=== PATIENT | female | born 1980 | race Two or more races ===

== ENCOUNTER 2021-05-25 11:57 | Emergency (ER) | payer OTHER ==
[2021-05-25 12:25] VITALS: BP 165/78; BMI 42.1
[2021-05-25 12:35] VITALS: PULSE 84; TEMP 98.4
[2021-05-25] MEDS ORDERED: ACETAMINOPHEN 1000 MG/100 ML BAG IVPB ONE (14:15)
[2021-05-25] MEDS ORDERED: ONDANSETRON 4 MG/2 ML VIAL IVPUSH ONE (14:15)
[2021-05-25] MEDS ORDERED: SODIUM CHLORIDE 1,000 ML IV STA (14:15)
[2021-05-25] MEDS ORDERED: ACETAMINOPHEN INJECTION 100 ML IVPB ONE (14:38)
[2021-05-25] MEDS ORDERED: ONDANSETRON 4 MG/2 ML VIAL ONE (14:38)
[2021-05-25 15:05] LABS: EPI CELLS >36 /uL (0-25.1); HYALINE CASTS 0 /uL (0-3.1); URINE APPEARANCE CLEAR; URINE BACTERIA 427 /uL (0-1359); URINE BILIRUBIN NEGATIVE (NEGATIVE); URINE COLOR YELLOW; URINE GLUCOSE (UA) TRACE (NEGATIVE); URINE KETONE NEGATIVE (NEGATIVE); URINE LEUK ESTERASE NEGATIVE (NEGATIVE); URINE NITRITE NEGATIVE (NEGATIVE); URINE PROTEIN 3+ (NEGATIVE); URINE RBC 11 /uL (0-23.9); URINE UROBILINOGEN 0.2 mg/dL (0.2-1.0); URINE WBC 28 /uL (0-25.8)
[2021-05-25 15:44] LABS: BASO % 0.7 % (0-2.0); EOS % 1.6 % (0-4.5); HEMATOCRIT 33.1 % (32.4-45.2); HEMOGLOBIN 11.3 GM/dL (10.7-15.3); LYMPH % 20.5 % (8-40); MCH 30.1 pg (25.7-33.7); MCHC 34.2 g/dl (32.0-36.0); MEAN CELL VOLUME 87.9 fl (80-96); MEAN PLT VOLUME 7.6 fl (7.5-11.1); MONO % 5.1 % (3.8-10.2); NEUT % 72.1 % (42.8-82.8); PLATELET COUNT 329 10^3/uL (134-434); RBC 3.77 M/mm3 (3.60-5.2); RDW 14.9 % (11.6-15.6); WHITE BLOOD COUNT 7.8 K/mm3 (4.0-10.0)
[2021-05-25 15:53] LABS: INR 0.92 (0.83-1.09); PROTHROMBIN TIME (PATIENT) 10.6 SEC (9.7-13.0)
[2021-05-25 16:06] LABS: CALCIUM 8.6 mg/dL (8.5-10.1)
[2021-05-25 16:07] LABS: ALBUMIN 2.2 g/dl (3.4-5.0); BLOOD UREA NITROGEN 12.7 mg/dL (7-18)
[2021-05-25 16:10] LABS: CREATININE 0.8 mg/dL (0.55-1.3)
[2021-05-25 16:12] LABS: BILIRUBIN,TOTAL 0.3 mg/dL (0.2-1); TOT PROT 6.5 g/dl (6.4-8.2)
== END 2021-05-25 19:59 | disposition home or self-care (01) ==
LOC: JER 11:57
PROC: 3E033GC Introduction of Other Therapeutic Substance into Peripheral Vein, Percutaneous Approach (ICD-10-PCS; principal; 2021-05-25)
DX: N83.201 Unspecified ovarian cyst, right side (principal)
CPT/HCPCS: 36415; 74177-TC; 80053; 81003; 83690; 84703; 85025; 85610; 87086; 99285-25; Q9967

== ENCOUNTER 2021-10-10 09:52 | Inpatient (IN) | payer OTHER ==
[2021-10-10 10:12] VITALS: BMI 54.5
[2021-10-10] MEDS ORDERED: ONDANSETRON 4 MG/2 ML VIAL IVPUSH ONE (11:14)
[2021-10-10] MEDS ORDERED: SODIUM CHLORIDE 0.9% 500 ML INFUS.BAG IV ONE (11:14)
[2021-10-10] MEDS ORDERED: ONDANSETRON 4 MG/2 ML VIAL ONE (12:06)
[2021-10-10 12:50] LABS: BASO % 0.5 % (0-2.0); EOS % 0.2 % (0-4.5); HEMATOCRIT 32.1 % (32.4-45.2); HEMOGLOBIN 10.6 GM/dL (10.7-15.3); LYMPH % 8.3 % (8-40); MCHC 33.1 g/dl (32.0-36.0); MEAN CELL VOLUME 87.4 fl (80-96); MEAN PLT VOLUME 7.9 fl (7.5-11.1); MONO % 2.4 % (3.8-10.2); NEUT % 88.6 % (42.8-82.8); PLATELET COUNT 349 10^3/uL (134-434); RBC 3.67 M/mm3 (3.60-5.2); WHITE BLOOD COUNT 11.2 K/mm3 (4.0-10.0)
[2021-10-10 13:15] LABS: CALCIUM 7.9 mg/dL (8.5-10.1)
[2021-10-10 13:16] LABS: ALBUMIN 1.4 g/dl (3.4-5.0); BLOOD UREA NITROGEN 33.2 mg/dL (7-18)
[2021-10-10 13:19] LABS: CREATININE 1.9 mg/dL (0.55-1.3)
[2021-10-10 13:20] LABS: BILIRUBIN,TOTAL 0.3 mg/dL (0.2-1)
[2021-10-10 13:21] LABS: TOT PROT 5.6 g/dl (6.4-8.2)
[2021-10-10] MEDS ORDERED: CLINDAMYCIN IVPB 300 MG in DEXTROSE 5%-WATER - 48 ML IVPB ONE (13:34)
[2021-10-10] MEDS ORDERED: CLINDAMYCIN 600MG PREMIX IVPB 600 MG/50 ML BAG IVPB ONE ×2 (14:03→14:04)
[2021-10-10] MEDS ORDERED: ACETAMINOPHEN 325 MG TABLET (FP) PO ONE (17:48)
[2021-10-10] MEDS ORDERED: ACETAMINOPHEN 325 MG TABLET (FP) ONE (17:56)
[2021-10-10 18:25] LABS: EPI CELLS >36 /uL (0-25.1); HYALINE CASTS 1 /uL (0-3.1); PH,URINE 6.5 (5.0-8.0); URINE APPEARANCE CLOUDY; URINE BACTERIA 3267 /uL (0-1359); URINE BILIRUBIN NEGATIVE (NEGATIVE); URINE COLOR YELLOW; URINE GLUCOSE (UA) TRACE (NEGATIVE); URINE KETONE NEGATIVE (NEGATIVE); URINE LEUK ESTERASE NEGATIVE (NEGATIVE); URINE NITRITE NEGATIVE (NEGATIVE); URINE PROTEIN 4+ (NEGATIVE); URINE RBC 180 /uL (0-23.9); URINE UROBILINOGEN 0.2 mg/dL (0.2-1.0)
[2021-10-11] MEDS ORDERED: ACETAMINOPHEN 500 MG TABLET (FP) PO PRN (04:25)
[2021-10-11] MEDS ORDERED: AMPICILLIN NA/SULBACTAM NA 3 GM in SODIUM CHLORIDE 100 ML IVPB SCH (04:45)
[2021-10-11] MEDS ORDERED: FUROSEMIDE 40 MG/4 ML INJECTABLE VIAL IVPUSH ONE (04:59)
[2021-10-11] MEDS ORDERED: FUROSEMIDE 40 MG/4 ML INJECTABLE VIAL ONE (05:31)
[2021-10-11 07:20] LABS: ALBUMIN 1.2 g/dl (3.4-5.0); BLOOD UREA NITROGEN 30.2 mg/dL (7-18); CALCIUM 7.1 mg/dL (8.5-10.1)
[2021-10-11 07:21] LABS: MAGNESIUM 1.7 mg/dL (1.8-2.4)
[2021-10-11 07:23] LABS: CREATININE 1.4 mg/dL (0.55-1.3); PHOSPHOROUS 3.3 mg/dL (2.5-4.9)
[2021-10-11 07:24] LABS: TOT PROT 5.2 g/dl (6.4-8.2)
[2021-10-11 07:25] LABS: BILIRUBIN,TOTAL 0.4 mg/dL (0.2-1)
[2021-10-11] MEDS ORDERED: MAGNESIUM SULF 50% (8.12 MEQ/2 ML-1 GM VIAL) IVPB ONE (07:39)
[2021-10-11] MEDS: HEPARIN NA (PORCINE) 5,000 UNITS/ML 1ML VIAL SQ SCH ×3 (07:56→22:09)
[2021-10-11] MEDS: INSULIN SLIDING SCALE (NOVOLOG) 1 VIAL SQ SCH ×4 (07:56→22:10)
[2021-10-11 08:27] LABS: N-TERMINAL BNP 1675.6 pg/ml (5-125)
[2021-10-11] MEDS ORDERED: MAGNESIUM SULF 50% (8.12 MEQ/2 ML-1 GM VIAL) ONE (09:48)
[2021-10-11 10:03] LABS: BASO % 1.1 % (0-2.0); EOS % 0.1 % (0-4.5); HEMATOCRIT 31.8 % (32.4-45.2); HEMOGLOBIN 10.8 GM/dL (10.7-15.3); LYMPH % 15.8 % (8-40); MCH 29.4 pg (25.7-33.7); MCHC 33.8 g/dl (32.0-36.0); MEAN CELL VOLUME 86.9 fl (80-96); MEAN PLT VOLUME 7.4 fl (7.5-11.1); MONO % 4.1 % (3.8-10.2); NEUT % 78.9 % (42.8-82.8); PLATELET COUNT 299 10^3/uL (134-434); RBC 3.66 M/mm3 (3.60-5.2); RDW 14.2 % (11.6-15.6); WHITE BLOOD COUNT 8.4 K/mm3 (4.0-10.0)
[2021-10-11] MEDS: AMPICILLIN NA/SULBACTAM NA 3 GM in SODIUM CHLORIDE 100 ML IVPB SCH ×3 (10:15→22:00)
[2021-10-11 11:05] LABS: ERYTHROCYTE SEDIMENTATION RATE 105 mm/hr (0-20)
[2021-10-11] MEDS ORDERED: INSULIN (NOVOLOG) ASPART 100 UNITS/ML 10ML VIAL ONE (11:35)
[2021-10-11 12:06] LABS: HIV INTERPRETATION NEGATIVE (NEGATIVE)
[2021-10-11] MEDS: VANCOMYCIN PREMIX 1.5 GM 1,500 MG/300 ML BAG IVPB SCH (14:04)
[2021-10-11] MEDS: BUMETANIDE INJECTION 1 MG/4 ML VIAL IVPUSH SCH (17:52)
[2021-10-11] MEDS ORDERED: DOXYCYCLINE HYCLATE 100 MG CAPSULE PO SCH (18:00)
[2021-10-11 18:34] LABS: EPI CELLS 36 /uL (0-25.1); HYALINE CASTS 2 /uL (0-3.1); PH,URINE 5.5 (5.0-8.0); URINE APPEARANCE CLOUDY; URINE BACTERIA 386 /uL (0-1359); URINE BILIRUBIN NEGATIVE (NEGATIVE); URINE COLOR YELLOW; URINE GLUCOSE (UA) NEGATIVE (NEGATIVE); URINE KETONE NEGATIVE (NEGATIVE); URINE LEUK ESTERASE NEGATIVE (NEGATIVE); URINE NITRITE NEGATIVE (NEGATIVE); URINE PROTEIN 3+ (NEGATIVE); URINE RBC 124 /uL (0-23.9); URINE UROBILINOGEN 0.2 mg/dL (0.2-1.0); URINE WBC 11 /uL (0-25.8)
[2021-10-11] MEDS ORDERED: DEXAMETHASONE SOD PHOSPHATE 4 MG/1 ML VIAL IVPUSH ONE ×2 (22:15→23:59)
[2021-10-12] MEDS: AMPICILLIN NA/SULBACTAM NA 3 GM in SODIUM CHLORIDE 100 ML IVPB SCH ×3 (02:54→16:06)
[2021-10-12] MEDS: INSULIN SLIDING SCALE (NOVOLOG) 1 VIAL SQ SCH ×3 (06:07→17:37)
[2021-10-12] MEDS: HEPARIN NA (PORCINE) 5,000 UNITS/ML 1ML VIAL SQ SCH ×3 (06:07→23:58)
[2021-10-12 09:13] LABS: BASO % 0.3 % (0-2.0); HEMATOCRIT 31.4 % (32.4-45.2); HEMOGLOBIN 10.5 GM/dL (10.7-15.3); LYMPH % 7.3 % (8-40); MCHC 33.5 g/dl (32.0-36.0); MEAN CELL VOLUME 86.7 fl (80-96); MONO % 3.2 % (3.8-10.2); NEUT % 89.2 % (42.8-82.8); PLATELET COUNT 315 10^3/uL (134-434); RBC 3.62 M/mm3 (3.60-5.2); RDW 13.9 % (11.6-15.6); WHITE BLOOD COUNT 9.6 K/mm3 (4.0-10.0)
[2021-10-12] MEDS: BUMETANIDE INJECTION 1 MG/4 ML VIAL IVPUSH SCH (10:47)
[2021-10-12 10:53] LABS: ALBUMIN 1.2 g/dl (3.4-5.0); BLOOD UREA NITROGEN 29.2 mg/dL (7-18)
[2021-10-12 10:56] LABS: CREATININE 1.3 mg/dL (0.55-1.3)
[2021-10-12 10:58] LABS: BILIRUBIN,TOTAL 0.2 mg/dL (0.2-1); TOT PROT 5.6 g/dl (6.4-8.2)
[2021-10-12 11:00] LABS: CALCIUM 8.3 mg/dL (8.5-10.1)
[2021-10-12] MEDS: VANCOMYCIN PREMIX 1.5 GM 1,500 MG/300 ML BAG IVPB SCH (13:44)
[2021-10-12] MEDS: LISINOPRIL 5 MG TABLET PO SCH (17:38)
[2021-10-13] MEDS: INSULIN SLIDING SCALE (NOVOLOG) 1 VIAL SQ SCH ×5 (00:02→21:08)
[2021-10-13] MEDS: AMPICILLIN NA/SULBACTAM NA 3 GM in SODIUM CHLORIDE 100 ML IVPB SCH ×5 (00:40→21:08)
[2021-10-13] MEDS: HEPARIN NA (PORCINE) 5,000 UNITS/ML 1ML VIAL SQ SCH ×3 (06:38→21:08)
[2021-10-13] MEDS: LISINOPRIL 5 MG TABLET PO SCH (11:15)
[2021-10-13] MEDS: BUMETANIDE INJECTION 1 MG/4 ML VIAL IVPUSH SCH (11:16)
[2021-10-13 11:51] LABS: EOS % 0.3 % (0-4.5); HEMATOCRIT 30.1 % (32.4-45.2); HEMOGLOBIN 10.2 GM/dL (10.7-15.3); LYMPH % 21.5 % (8-40); MCH 29.3 pg (25.7-33.7); MCHC 33.7 g/dl (32.0-36.0); MEAN CELL VOLUME 86.9 fl (80-96); MONO % 6.8 % (3.8-10.2); NEUT % 70.4 % (42.8-82.8); PLATELET COUNT 377 10^3/uL (134-434); RBC 3.47 M/mm3 (3.60-5.2); WHITE BLOOD COUNT 8.8 K/mm3 (4.0-10.0)
[2021-10-13 12:03] LABS: CALCIUM 8.2 mg/dL (8.5-10.1)
[2021-10-13 12:04] LABS: ALBUMIN 1.3 g/dl (3.4-5.0)
[2021-10-13] MEDS: VANCOMYCIN PREMIX 1.5 GM 1,500 MG/300 ML BAG IVPB SCH (12:07)
[2021-10-13 12:14] LABS: BILIRUBIN,TOTAL 0.4 mg/dL (0.2-1); CREATININE 1.2 mg/dL (0.55-1.3); TOT PROT 5.6 g/dl (6.4-8.2)
[2021-10-14] MEDS: AMPICILLIN NA/SULBACTAM NA 3 GM in SODIUM CHLORIDE 100 ML IVPB SCH ×4 (04:06→21:23)
[2021-10-14] MEDS: INSULIN SLIDING SCALE (NOVOLOG) 1 VIAL SQ SCH ×4 (06:46→21:23)
[2021-10-14] MEDS: HEPARIN NA (PORCINE) 5,000 UNITS/ML 1ML VIAL SQ SCH ×3 (06:47→21:22)
[2021-10-14 09:18] LABS: BASO % 0.8 % (0-2.0); EOS % 1.1 % (0-4.5); HEMATOCRIT 31.2 % (32.4-45.2); HEMOGLOBIN 10.4 GM/dL (10.7-15.3); LYMPH % 34.3 % (8-40); MCH 29.1 pg (25.7-33.7); MCHC 33.5 g/dl (32.0-36.0); MEAN CELL VOLUME 86.9 fl (80-96); MEAN PLT VOLUME 7.5 fl (7.5-11.1); MONO % 8.5 % (3.8-10.2); NEUT % 55.3 % (42.8-82.8); PLATELET COUNT 430 10^3/uL (134-434); RBC 3.59 M/mm3 (3.60-5.2); RDW 14.2 % (11.6-15.6); WHITE BLOOD COUNT 8.4 K/mm3 (4.0-10.0)
[2021-10-14 10:11] LABS: ALBUMIN 1.5 g/dl (3.4-5.0); BLOOD UREA NITROGEN 28.1 mg/dL (7-18); CALCIUM 8.4 mg/dL (8.5-10.1)
[2021-10-14 10:14] LABS: CREATININE 1.2 mg/dL (0.55-1.3)
[2021-10-14 10:17] LABS: BILIRUBIN,TOTAL 0.2 mg/dL (0.2-1)
[2021-10-14] MEDS: BUMETANIDE INJECTION 1 MG/4 ML VIAL IVPUSH SCH (10:37)
[2021-10-14] MEDS: LISINOPRIL 5 MG TABLET PO SCH (10:38)
[2021-10-14 13:21] LABS: ERYTHROCYTE SEDIMENTATION RATE 106 mm/hr (0-20)
[2021-10-14] MEDS: VANCOMYCIN PREMIX 1.5 GM 1,500 MG/300 ML BAG IVPB SCH (14:09)
[2021-10-14 16:08] LABS: ATYPICAL pANCA <1:20 titer (Neg:<1:20); C-ANCA <1:20 titer (Neg:<1:20)
[2021-10-14] MEDS: INSULIN (LEVEMIR) 100 UNITS/ML UNITS SQ SCH (21:22)
[2021-10-15] MEDS: AMPICILLIN NA/SULBACTAM NA 3 GM in SODIUM CHLORIDE 100 ML IVPB SCH ×4 (02:31→21:12)
[2021-10-15] MEDS: INSULIN SLIDING SCALE (NOVOLOG) 1 VIAL SQ SCH ×4 (06:44→21:06)
[2021-10-15] MEDS: HEPARIN NA (PORCINE) 5,000 UNITS/ML 1ML VIAL SQ SCH ×3 (06:44→21:20)
[2021-10-15] MEDS: LISINOPRIL 5 MG TABLET PO SCH (10:29)
[2021-10-15] MEDS: BUMETANIDE INJECTION 1 MG/4 ML VIAL IVPUSH SCH (10:31)
[2021-10-15 10:37] LABS: HEMATOCRIT 28.6 % (32.4-45.2); HEMOGLOBIN 9.6 GM/dL (10.7-15.3); MCH 29.5 pg (25.7-33.7); MCHC 33.7 g/dl (32.0-36.0); MEAN CELL VOLUME 87.6 fl (80-96); MEAN PLT VOLUME 7.3 fl (7.5-11.1); PLATELET COUNT 465 10^3/uL (134-434); RBC 3.26 M/mm3 (3.60-5.2); RDW 13.8 % (11.6-15.6); WHITE BLOOD COUNT 10.4 K/mm3 (4.0-10.0)
[2021-10-15 10:57] LABS: ALBUMIN 1.5 g/dl (3.4-5.0); BLOOD UREA NITROGEN 24.7 mg/dL (7-18)
[2021-10-15 10:59] LABS: CREATININE 1.1 mg/dL (0.55-1.3)
[2021-10-15 11:01] LABS: BILIRUBIN,TOTAL 0.2 mg/dL (0.2-1); TOT PROT 5.6 g/dl (6.4-8.2)
[2021-10-15] MEDS: VANCOMYCIN PREMIX 1.5 GM 1,500 MG/300 ML BAG IVPB SCH (13:28)
[2021-10-15] MEDS: INSULIN (LEVEMIR) 100 UNITS/ML UNITS SQ SCH (21:05)
[2021-10-16] MEDS: AMPICILLIN NA/SULBACTAM NA 3 GM in SODIUM CHLORIDE 100 ML IVPB SCH ×4 (02:08→20:20)
[2021-10-16] MEDS: HEPARIN NA (PORCINE) 5,000 UNITS/ML 1ML VIAL SQ SCH ×3 (06:19→21:50)
[2021-10-16] MEDS: INSULIN SLIDING SCALE (NOVOLOG) 1 VIAL SQ SCH ×4 (06:19→21:53)
[2021-10-16 08:28] LABS: HEMATOCRIT 27.3 % (32.4-45.2); MCH 28.7 pg (25.7-33.7); MCHC 33.1 g/dl (32.0-36.0); MEAN CELL VOLUME 86.6 fl (80-96); PLATELET COUNT 491 10^3/uL (134-434); RBC 3.15 M/mm3 (3.60-5.2); RDW 13.9 % (11.6-15.6); WHITE BLOOD COUNT 13.2 K/mm3 (4.0-10.0)
[2021-10-16 08:53] LABS: CALCIUM 7.9 mg/dL (8.5-10.1)
[2021-10-16 08:54] LABS: ALBUMIN 1.5 g/dl (3.4-5.0); BLOOD UREA NITROGEN 21.2 mg/dL (7-18)
[2021-10-16 08:58] LABS: BILIRUBIN,TOTAL 0.3 mg/dL (0.2-1); TOT PROT 5.4 g/dl (6.4-8.2)
[2021-10-16] MEDS: LISINOPRIL 5 MG TABLET PO SCH (10:58)
[2021-10-16] MEDS: BUMETANIDE INJECTION 1 MG/4 ML VIAL IVPUSH SCH (10:58)
[2021-10-16] MEDS: VANCOMYCIN PREMIX 1.5 GM 1,500 MG/300 ML BAG IVPB SCH (16:10)
[2021-10-16] MEDS ORDERED: INSULIN (NOVOLOG) ASPART 100 UNITS/ML 10ML VIAL ONE (21:47)
[2021-10-16] MEDS: INSULIN (LEVEMIR) 100 UNITS/ML UNITS SQ SCH (21:52)
[2021-10-17] MEDS: AMPICILLIN NA/SULBACTAM NA 3 GM in SODIUM CHLORIDE 100 ML IVPB SCH ×3 (03:27→14:52)
[2021-10-17] MEDS: HEPARIN NA (PORCINE) 5,000 UNITS/ML 1ML VIAL SQ SCH ×3 (06:52→22:16)
[2021-10-17] MEDS: INSULIN (LEVEMIR) 100 UNITS/ML UNITS SQ SCH ×2 (06:53→22:15)
[2021-10-17] MEDS: INSULIN SLIDING SCALE (NOVOLOG) 1 VIAL SQ SCH ×4 (06:54→22:16)
[2021-10-17] MEDS: LISINOPRIL 5 MG TABLET PO SCH (09:40)
[2021-10-17] MEDS: BUMETANIDE INJECTION 1 MG/4 ML VIAL IVPUSH SCH (09:40)
[2021-10-17 10:08] LABS: HEMATOCRIT 25.5 % (32.4-45.2); HEMOGLOBIN 8.7 GM/dL (10.7-15.3); MCH 29.6 pg (25.7-33.7); MEAN CELL VOLUME 87.1 fl (80-96); MEAN PLT VOLUME 6.7 fl (7.5-11.1); PLATELET COUNT 501 10^3/uL (134-434); RBC 2.93 M/mm3 (3.60-5.2); WHITE BLOOD COUNT 11.8 K/mm3 (4.0-10.0)
[2021-10-17 10:48] LABS: BILIRUBIN,TOTAL 0.3 mg/dL (0.2-1)
[2021-10-17 10:49] LABS: ALBUMIN 1.5 g/dl (3.4-5.0)
[2021-10-17 10:50] LABS: BLOOD UREA NITROGEN 17.3 mg/dL (7-18)
[2021-10-17 10:52] LABS: CREATININE 0.8 mg/dL (0.55-1.3)
[2021-10-17 10:54] LABS: ANISOCYTOSIS 3+; MACROCYTOSIS 0
[2021-10-17 10:55] LABS: TOT PROT 5.5 g/dl (6.4-8.2)
[2021-10-17] MEDS: VANCOMYCIN PREMIX 1.5 GM 1,500 MG/300 ML BAG IVPB SCH (12:11)
[2021-10-18] MEDS: HEPARIN NA (PORCINE) 5,000 UNITS/ML 1ML VIAL SQ SCH ×3 (06:04→21:57)
[2021-10-18] MEDS: INSULIN (LEVEMIR) 100 UNITS/ML UNITS SQ SCH ×2 (06:04→21:56)
[2021-10-18] MEDS: INSULIN SLIDING SCALE (NOVOLOG) 1 VIAL SQ SCH ×4 (06:05→21:57)
[2021-10-18 10:20] LABS: HEMATOCRIT 26.7 % (32.4-45.2); MCH 29.8 pg (25.7-33.7); MCHC 33.7 g/dl (32.0-36.0); MEAN CELL VOLUME 88.3 fl (80-96); MEAN PLT VOLUME 6.8 fl (7.5-11.1); PLATELET COUNT 559 10^3/uL (134-434); RBC 3.02 M/mm3 (3.60-5.2); RDW 14.2 % (11.6-15.6); WHITE BLOOD COUNT 9.4 K/mm3 (4.0-10.0)
[2021-10-18 10:34] LABS: CALCIUM 8.2 mg/dL (8.5-10.1)
[2021-10-18 10:35] LABS: ALBUMIN 1.6 g/dl (3.4-5.0); BLOOD UREA NITROGEN 21.4 mg/dL (7-18)
[2021-10-18 10:38] LABS: CREATININE 0.8 mg/dL (0.55-1.3)
[2021-10-18 10:40] LABS: BILIRUBIN,TOTAL 0.3 mg/dL (0.2-1); TOT PROT 5.7 g/dl (6.4-8.2)
[2021-10-18] MEDS: LISINOPRIL 5 MG TABLET PO SCH (10:42)
[2021-10-18] MEDS: BUMETANIDE INJECTION 1 MG/4 ML VIAL IVPUSH SCH (10:43)
[2021-10-18 11:40] LABS: ANISOCYTOSIS 0; MACROCYTOSIS 0; PLATELET ESTIMATE INCREASED
[2021-10-18] MEDS: VANCOMYCIN PREMIX 1.5 GM 1,500 MG/300 ML BAG IVPB SCH (12:40)
[2021-10-19] MEDS ORDERED: INSULIN (NOVOLOG) ASPART 100 UNITS/ML 10ML VIAL ONE ×2 (06:19→11:46)
[2021-10-19] MEDS: INSULIN (LEVEMIR) 100 UNITS/ML UNITS SQ SCH (07:18)
[2021-10-19] MEDS: HEPARIN NA (PORCINE) 5,000 UNITS/ML 1ML VIAL SQ SCH ×2 (07:18→13:17)
[2021-10-19] MEDS: INSULIN SLIDING SCALE (NOVOLOG) 1 VIAL SQ SCH ×2 (07:19→12:02)
[2021-10-19 07:30] LABS: HEMATOCRIT 27.2 % (32.4-45.2); HEMOGLOBIN 9.3 GM/dL (10.7-15.3); MCH 29.7 pg (25.7-33.7); MCHC 34.2 g/dl (32.0-36.0); MEAN CELL VOLUME 86.8 fl (80-96); MEAN PLT VOLUME 6.9 fl (7.5-11.1); PLATELET COUNT 580 10^3/uL (134-434); RBC 3.13 M/mm3 (3.60-5.2); RDW 13.9 % (11.6-15.6); WHITE BLOOD COUNT 8.8 K/mm3 (4.0-10.0)
[2021-10-19 07:51] LABS: ALBUMIN 1.6 g/dl (3.4-5.0); BLOOD UREA NITROGEN 19.3 mg/dL (7-18)
[2021-10-19 07:54] LABS: CREATININE 0.8 mg/dL (0.55-1.3)
[2021-10-19 07:55] LABS: BILIRUBIN,TOTAL 0.2 mg/dL (0.2-1)
[2021-10-19] MEDS: LISINOPRIL 5 MG TABLET PO SCH (09:28)
[2021-10-19] MEDS: BUMETANIDE INJECTION 1 MG/4 ML VIAL IVPUSH SCH (09:28)
[2021-10-19 09:31] LABS: ANISOCYTOSIS 0; MACROCYTOSIS 0
[2021-10-19] MEDS ORDERED: INSULIN (LEVEMIR) 100 UNITS/ML UNITS SQ ONE (10:55)
[2021-10-19] MEDS ORDERED: INSULIN (LEVEMIR) 100 UNITS/ML UNITS SQ SCH (10:55)
[2021-10-19] MEDS ORDERED: Insulin (LOG) Aspart 100 UNITS/ML VIAL SQ SCH (11:00)
[2021-10-19] MEDS ORDERED: SODIUM CHLORIDE NASAL SPRAY 44 ML BOTTLE NS PRN (13:09)
[2021-10-19] MEDS: VANCOMYCIN PREMIX 1.5 GM 1,500 MG/300 ML BAG IVPB SCH (13:16)
[2021-10-19 13:27] VITALS: BP 137/75; PULSE 69; RESP 20; TEMP 99.1
== END 2021-10-19 17:13 | disposition home or self-care (01) | DRG 383 ==
LOC: JER 09:52 → JERBED 13:41 → J8W 10-11 07:02
PROVIDERS: ADMIT Family Medicine; ATTEND Internal Medicine
DX: L03.116 Cellulitis of left lower limb (principal); E11.21 Type 2 diabetes mellitus with diabetic nephropathy; N17.9 Acute kidney failure, unspecified; E11.65 Type 2 diabetes mellitus with hyperglycemia; E88.09 Other disorders of plasma-protein metabolism, not elsewhere classified; D64.9 Anemia, unspecified; I51.7 Cardiomegaly; N18.9 Chronic kidney disease, unspecified; R68.89 Other general symptoms and signs; R80.9 Proteinuria, unspecified; E66.01 Morbid (severe) obesity due to excess calories; Z68.43 Body mass index [BMI] 50.0-59.9, adult; D72.829 Elevated white blood cell count, unspecified; E78.5 Hyperlipidemia, unspecified
CPT/HCPCS: 36415; 71045-TC-FY; 76775-TC; 76856-TC; 80053; 80061; 81003; 82436; 82533; 82570; 82728; 82962; 83036; 83520; 83540; 83550; 83735; 83880; 84100; 84133; 84156; 84300; 84439; 84443; 84481; 84703; 85025; 85027; 85651; 86038; 86140; 86160; 86162; 86225; 86256; 86705; 86803; 87040; 87086; 87324; 87389; 87449; 87517; 93005; 93010; 93306-TC; 93971-TC; 97116-GP; 97161-GP; 99285-25; C9803-CS; G0480; J1644; U0003; U0005

== ENCOUNTER 2021-10-30 10:11 | Emergency (ER) | payer OTHER ==
[2021-10-30 10:19] VITALS: RESP 16; TEMP 98.2; BMI 53.5
[2021-10-30 12:02] LABS: BASO % 1.2 % (0-2.0); EOS % 2.1 % (0-4.5); HEMATOCRIT 30.4 % (32.4-45.2); HEMOGLOBIN 9.9 GM/dL (10.7-15.3); LYMPH % 21.2 % (8-40); MCH 28.9 pg (25.7-33.7); MCHC 32.6 g/dl (32.0-36.0); MEAN CELL VOLUME 88.7 fl (80-96); MEAN PLT VOLUME 6.6 fl (7.5-11.1); MONO % 5.7 % (3.8-10.2); NEUT % 69.8 % (42.8-82.8); PLATELET COUNT 430 10^3/uL (134-434); RBC 3.43 M/mm3 (3.60-5.2); RDW 14.4 % (11.6-15.6); WHITE BLOOD COUNT 7.4 K/mm3 (4.0-10.0)
[2021-10-30 12:21] LABS: CALCIUM 8.3 mg/dL (8.5-10.1)
[2021-10-30 12:22] LABS: BLOOD UREA NITROGEN 13.2 mg/dL (7-18)
[2021-10-30 12:25] LABS: CREATININE 1.1 mg/dL (0.55-1.3)
[2021-10-30 12:26] LABS: BILIRUBIN,TOTAL 0.3 mg/dL (0.2-1)
[2021-10-30 12:27] LABS: TOT PROT 6.9 g/dl (6.4-8.2)
[2021-10-30] MEDS ORDERED: SULFAMETHOXAZOLE/TRIMETHOPRIM 800MG/160MG D.S. TABLET PO ONE (15:36)
[2021-10-30] MEDS ORDERED: SULFAMETHOXAZOLE/TRIMETHOPRIM 800MG/160MG D.S. TABLET ONE (15:38)
[2021-10-30 15:59] VITALS: BP 167/82; PULSE 68
== END 2021-10-30 15:59 | disposition home or self-care (01) ==
LOC: JER 10:11
DX: L03.116 Cellulitis of left lower limb (principal)
CPT/HCPCS: 36415; 80053; 85025; 87040; 93971-TC; 99284-25

== ENCOUNTER 2023-03-13 03:53 | Observation (INO) | payer OTHER ==
[2023-03-13 04:17] VITALS: BMI 52.5
[2023-03-13 04:23] LABS: EPI CELLS >36 /uL (0-25.1); HYALINE CASTS 1 /uL (0-3.1); URINE APPEARANCE CLEAR; URINE BACTERIA 2271 /uL (0-1359); URINE BILIRUBIN NEGATIVE (NEGATIVE); URINE COLOR YELLOW; URINE GLUCOSE (UA) 2+ (NEGATIVE); URINE KETONE NEGATIVE (NEGATIVE); URINE LEUK ESTERASE NEGATIVE (NEGATIVE); URINE NITRITE NEGATIVE (NEGATIVE); URINE PROTEIN 3+ (NEGATIVE); URINE RBC 25 /uL (0-23.9); URINE UROBILINOGEN 0.2 mg/dL (0.2-1.0); URINE WBC 33 /uL (0-25.8)
[2023-03-13] MEDS ORDERED: ASPIRIN 81 MG CHEWABLE TABLETS PO ONE (04:39)
[2023-03-13] MEDS ORDERED: ASPIRIN 81 MG CHEWABLE TABLETS ONE (04:41)
[2023-03-13 04:42] LABS: HCG,QUALITATIVE URINE Negative
[2023-03-13 04:52] LABS: INR 0.93 (0.83-1.09); PROTHROMBIN TIME (PATIENT) 10.8 SEC (9.7-13.0)
[2023-03-13 04:53] LABS: BASO % 0.3 % (0-2.0); EOS % 2.1 % (0-4.5); HEMATOCRIT 37.2 % (32.4-45.2); HEMOGLOBIN 12.3 GM/dL (10.7-15.3); LYMPH % 26.8 % (8-40); MCH 28.6 pg (25.7-33.7); MEAN CELL VOLUME 86.6 fl (80-96); MEAN PLT VOLUME 6.9 fl (7.5-11.1); MONO % 6.4 % (3.8-10.2); NEUT % 64.4 % (42.8-82.8); PLATELET COUNT 362 10^3/uL (134-434); RBC 4.29 M/mm3 (3.60-5.2); RDW 15.3 % (11.6-15.6); WHITE BLOOD COUNT 9.9 K/mm3 (4.0-10.0)
[2023-03-13 05:07] LABS: POTASSIUM 4.2 mmol/L (3.5-5.1)
[2023-03-13 05:09] LABS: CALCIUM 7.2 mg/dL (8.5-10.1)
[2023-03-13 05:10] LABS: ALBUMIN 1.8 g/dl (3.4-5.0); BLOOD UREA NITROGEN 17.3 mg/dL (7-18)
[2023-03-13 05:13] LABS: CREATININE 1.2 mg/dL (0.55-1.3)
[2023-03-13 05:14] LABS: BILIRUBIN,TOTAL 0.3 mg/dL (0.2-1); TOT PROT 6.3 g/dl (6.4-8.2)
[2023-03-13] MEDS ORDERED: SODIUM CHLORIDE 0.9% 500 ML INFUS.BAG IV ONE (05:16)
[2023-03-13] MEDS ORDERED: INSULIN REGULAR HUMAN 100 UNITS/ML *VIAL IVPUSH ONE (05:17)
[2023-03-13] MEDS ORDERED: FUROSEMIDE 40 MG/4 ML INJECTABLE VIAL IVPUSH ONE (09:30)
[2023-03-13] MEDS ORDERED: SODIUM CHLORIDE 1 GM TABLET PO ONE (10:00)
[2023-03-13] MEDS ORDERED: FUROSEMIDE 40 MG/4 ML INJECTABLE VIAL ONE (11:04)
[2023-03-13] MEDS ORDERED: LISINOPRIL 20 MG TABLET ONE (11:04)
[2023-03-13] MEDS: LISINOPRIL 20 MG TABLET PO SCH (11:06)
[2023-03-13] MEDS: INSULIN ASPART SLIDING SCALE (NOVOLOG) 1 VIAL SQ SCH ×2 (11:13→17:24)
[2023-03-13] MEDS ORDERED: INSULIN (NOVOLOG) ASPART 100 UNITS/ML 10ML VIAL ONE (17:25)
[2023-03-13] MEDS ORDERED: ATORVASTATIN CA 80 MG TABLET (FP) ONE (21:03)
[2023-03-13] MEDS: ATORVASTATIN CA 80 MG TABLET (FP) PO SCH (21:06)
[2023-03-14 08:21] LABS: BASO % 0.8 % (0-2.0); EOS % 2.3 % (0-4.5); HEMATOCRIT 33.2 % (32.4-45.2); HEMOGLOBIN 10.9 GM/dL (10.7-15.3); LYMPH % 28.1 % (8-40); MCH 28.9 pg (25.7-33.7); MCHC 32.9 g/dl (32.0-36.0); MEAN CELL VOLUME 87.8 fl (80-96); MEAN PLT VOLUME 7.3 fl (7.5-11.1); MONO % 6.8 % (3.8-10.2); PLATELET COUNT 300 10^3/uL (134-434); RBC 3.78 M/mm3 (3.60-5.2); RDW 14.8 % (11.6-15.6); WHITE BLOOD COUNT 7.7 K/mm3 (4.0-10.0)
[2023-03-14 08:37] LABS: POTASSIUM 4.1 mmol/L (3.5-5.1)
[2023-03-14 08:49] LABS: BLOOD UREA NITROGEN 17.1 mg/dL (7-18); CALCIUM 7.5 mg/dL (8.5-10.1)
[2023-03-14 08:52] LABS: CREATININE 1.1 mg/dL (0.55-1.3)
[2023-03-14] MEDS: INSULIN ASPART SLIDING SCALE (NOVOLOG) 1 VIAL SQ SCH ×3 (09:03→17:20)
[2023-03-14] MEDS: LISINOPRIL 20 MG TABLET PO SCH (10:30)
[2023-03-14] MEDS ORDERED: INSULIN (LEVEMIR) 100 UNITS/ML UNITS SQ ONE (14:19)
[2023-03-14] MEDS ORDERED: ENOXAPARIN NA (PORCINE) 40 MG/0.4 ML DISP.SYRIN SQ ONE (14:19)
[2023-03-14] MEDS: ENOXAPARIN NA (PORCINE) 40 MG/0.4 ML DISP.SYRIN SQ SCH (14:20)
[2023-03-14] MEDS: INSULIN (LEVEMIR) 100 UNITS/ML UNITS SQ SCH ×2 (14:20→21:44)
[2023-03-14] MEDS ORDERED: ATORVASTATIN CA 80 MG TABLET (FP) ONE (21:28)
[2023-03-14] MEDS: ATORVASTATIN CA 80 MG TABLET (FP) PO SCH (21:44)
[2023-03-15] MEDS: INSULIN ASPART SLIDING SCALE (NOVOLOG) 1 VIAL SQ SCH (08:15)
[2023-03-15] MEDS: LISINOPRIL 20 MG TABLET PO SCH ×2 (08:20→09:01)
[2023-03-15] MEDS: ENOXAPARIN NA (PORCINE) 40 MG/0.4 ML DISP.SYRIN SQ SCH ×2 (08:20→09:01)
[2023-03-15 09:00] VITALS: PULSE 70; RESP 18; TEMP 99
[2023-03-15] MEDS ORDERED: LISINOPRIL 20 MG TABLET PO SCH (09:31)
[2023-03-15 10:32] VITALS: BP 134/78
== END 2023-03-15 11:04 | disposition home or self-care (01) ==
LOC: JER 03:53 → JERBED 10:40
PROVIDERS: ADMIT Internal Medicine; ATTEND Internal Medicine
PROC: 3E023GC Introduction of Other Therapeutic Substance into Muscle, Percutaneous Approach (ICD-10-PCS; principal; 2023-03-13)
PROC: 3E033GC Introduction of Other Therapeutic Substance into Peripheral Vein, Percutaneous Approach (ICD-10-PCS; 2023-03-13)
PROC: 3E013VG Introduction of Insulin into Subcutaneous Tissue, Percutaneous Approach (ICD-10-PCS; 2023-03-13)
PROC: 3E033VG Introduction of Insulin into Peripheral Vein, Percutaneous Approach (ICD-10-PCS; 2023-03-13)
PROC: 3E0337Z Introduction of Electrolytic and Water Balance Substance into Peripheral Vein, Percutaneous Approach (ICD-10-PCS; 2023-03-13)
DX: I27.20 Pulmonary hypertension, unspecified (principal); I27.81 Cor pulmonale (chronic); I50.9 Heart failure, unspecified; R06.09 Other forms of dyspnea; R42 Dizziness and giddiness; R06.00 Dyspnea, unspecified; E78.5 Hyperlipidemia, unspecified; R06.01 Orthopnea; E11.9 Type 2 diabetes mellitus without complications
CPT/HCPCS: 0241U-QW; 36415; 71046-TC-FY; 80048; 80053; 81003; 82962; 83036; 83880; 84484; 84703; 85025; 85610; 87651; 93005; 93010; 93306-TC; 93970-TC; 96372; 96374; 96375; 99285-25; G0378